=== PATIENT | female | born 1985 | race African-American/Black ===

== ENCOUNTER 2017-01-17 14:33 | Emergency (ER) | payer OTHER ==
[~2017-01-17] VITALS: Ht 162.6 cm; Wt 40.0 kg
[~2017-01-17 14:33] MED LIST: BUTA1CAP PO; LORA-361 PO; PROC10TA PO
[2017-01-17 14:37] VITALS: BP 122/81; PULSE 92; RESP 17; TEMP 98.4; O2SAT 98
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
== END 2017-01-17 16:22 | disposition home or self-care (01) ==
LOC: NEPD 14:33
DX: M54.5 Low back pain (principal); M62.830 Muscle spasm of back; V49.9XXA Car occupant (driver) (passenger) injured in unspecified traffic accident, initial encounter
CPT/HCPCS: 72110; 99283

== ENCOUNTER 2017-06-15 10:08 | Emergency (ER) | payer SELFPAY ==
[~2017-06-15] VITALS: Ht 154.9 cm; Wt 50.0 kg
[2017-06-15] MEDS ORDERED: ADVICAP (10:35)
[2017-06-15 10:39] VITALS: BP 112/65; PULSE 85; RESP 20; TEMP 99; O2SAT 99
--- NOTE | 2017-06-15 11:08 | PD ---
HPI Chief Complaint: Cold / Flu Symptoms Time Seen by Provider: 10:47 Travel History International Travel<30 days: No Contact w/Intl Traveler<30days: No Traveled to known affect area: No History of Present Illness HPI 32 year-old woman, presents to the emergency department complaining of being sick for the past 3 days, cough headaches nausea feeling poorly. Fevers at home. One episode of diarrhea couple days ago. No definite sick contacts. Feeling otherwise well and healthy. History Past Medical History Medical History: Denies Significant Hx LMP: 04/2017 Social History Alcohol Use: Yes (social) Tobacco Use: No Allergies-Medications (Allergen,Severity, Reaction): Coded Allergies: No Known Allergies (Unverified Adverse Reaction, Unknown, 06/15/17) Reported Meds & Prescriptions Reported Meds & Active Scripts Active Reported Advil Cold & Sinus (Pseudoephedrine-Ibuprofen) 30-200 Mg Cap 200 Review of Systems Except as stated in HPI: all other systems reviewed are Neg Physical Exam Narrative GENERAL: Well-appearing 30-year-old, no acute distress. SKIN: Focused skin assessment warm/dry. HEAD: Atraumatic. Normocephalic. EYES: Pupils equal and round. No scleral icterus. No injection or drainage. ENT: No nasal bleeding or discharge. Mucous membranes pink and moist. NECK: Trachea midline. No JVD. No anterior cervical adenopathy. No meningismus. CARDIOVASCULAR: Regular rate and rhythm. No murmur appreciated. RESPIRATORY: No accessory muscle use. Clear to auscultation. Breath sounds equal bilaterally. GASTROINTESTINAL: Abdomen soft, non-tender, nondistended. Hepatic and splenic margins not palpable. MUSCULOSKELETAL: No obvious deformities. No edema. NEUROLOGICAL: Awake and alert. No obvious cranial nerve deficits. Motor grossly within normal limits. Normal speech. Data Data Last Documented VS Vital Signs Date Time Temp Pulse Resp B/P (MAP) Pulse Ox O2 Delivery O2 Flow Rate FiO2 06/15/17 10:39 99.0 85 20 112/65 (81) 99 Room Air Orders Orders Acetaminophen (Tylenol) (06/15/17 11:15) Ondansetron Odt (Zofran Odt) (06/15/17 11:15) Ed Urine Pregnancytest Poc (06/15/17 11:02) MDM Medical Decision Making Medical Screen Exam Complete: Yes Emergency Medical Condition: Yes Differential Diagnosis URI, cough cold, influenza, other Narrative Course Medical decision-making new 32 year-old woman, flulike symptoms, some headache, little bit of cough cold, looks overall well, little bit of abdominal cramping as well. Benign exam. Looks well. Recommend supportive treatment. Diagnosis Primary Impression: Influenza-like illness Additional Instructions: Take acetaminophen or ibuprofen as a for fever or body aches. You can return to work after you have had no fever for 24 hours. Drink plenty of fluids to stay well-hydrated. Follow-up with your primary doctor if you are not completely well in 7-10 days. Return to the emergency department for any worsening chest pain, trouble breathing, or any other new or worsening symptoms. Med/Other Pt SpecificInfo: No Change to Meds Disposition: 01 DISCHARGE HOME Condition: Stable Abdelrahman Coley MD Jun 15, 2017 11:08
[2017-06-15] MEDS ORDERED: ACETAMINOPHEN 500 MG CPLT PO ONE (11:15)
[2017-06-15] MEDS ORDERED: ONDANSETRON ODT 4 MG TAB PO ONE (11:15)
== END 2017-06-15 11:17 | disposition home or self-care (01) ==
LOC: NEPD 10:08
DX: J11.1 Influenza due to unidentified influenza virus with other respiratory manifestations (principal)
CPT/HCPCS: 84703; 99283

== ENCOUNTER 2017-08-15 22:12 | Emergency (ER) | payer SELFPAY ==
[~2017-08-15 22:12] MED LIST changes: +ADVICAP; -BUTA1CAP PO; -LORA-361 PO; -PROC10TA PO
[2017-08-15 22:24] VITALS: BP 147/94; PULSE 97; RESP 16; O2SAT 100
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
[2017-08-15] MEDS ORDERED: SODIUM CHLOR 0.9% 1000 ML INJ 1,000 ML IV SCH (22:42)
[2017-08-15] MEDS ORDERED: SODIUM CHLORIDE 0.9% FLUSH 10 ML FLUSH IV FLUSH PRN (22:45)
[2017-08-15 23:15] LABS: AUTOMATED NEUTROPHIL # 3.4 TH/MM3 (1.8-7.7); BASOPHIL # 0.1 TH/MM3 (0-0.2); BASOPHIL % 0.8 % (0.0-2.0); EOSINOPHIL % 0.6 % (0.0-4.0); HEMATOCRIT 37.5 % (35.0-46.0); HEMOGLOBIN 12.3 GM/DL (11.6-15.3); MEAN CELL VOLUME 81.7 FL (80.0-100.0); MEAN CORPUSCULAR HEMOGLOBIN 26.8 PG (27.0-34.0); MEAN CORPUSCULAR HGB CONC 32.8 % (32.0-36.0); MEAN PLATELET VOLUME 9.2 FL (7.0-11.0); MONO % 6.3 % (0.0-8.0); MONOCYTE # 0.5 TH/MM3 (0-0.9); NEUT % 42.3 % (16.0-70.0); PLATELET COUNT 250 TH/MM3 (150-450); RED BLOOD COUNT 4.59 MIL/MM3 (4.00-5.30); RED CELL DISTRIBUTION WIDTH 16.9 % (11.6-17.2); WHITE BLOOD COUNT 8.1 TH/MM3 (4.0-11.0)
[2017-08-15 23:25] LABS: BILIRUBIN, URINE NEG (NEG); BLOOD, URINE MOD (NEG); GLUCOSE,URINE NEG (NEG); KETONE, URINE NEG (NEG); MUCUS URINE FEW /lpf (OCC); NITRITE,URINE NEG (NEG); SQUAMOUS EPITHELIAL CELL URINE 2 /hpf (0-5); URINE COLOR LIGHT-YELLOW (YELLW/STRAW); URINE LEUKOCYTE ESTERASE TRACE (NEG)
[2017-08-15 23:31] LABS: ALBUMIN 4.5 GM/DL (3.4-5.0); AST (GOT) 29 U/L (15-37); BICARBONATE 27.2 MEQ/L (21.0-32.0); BLOOD UREA NITROGEN 10 MG/DL (7-18); CALCIUM 9.7 MG/DL (8.5-10.1); CHLORIDE 105 MEQ/L (98-107); CREATININE 0.89 MG/DL (0.50-1.00); GLOMERULAR FILTRATION RATE 89 ML/MIN (>89); GLUCOSE,RANDOM 103 MG/DL (74-106); SODIUM (NA) 142 MEQ/L (136-145)
[2017-08-15 23:32] LABS: ALT (GPT) 35 U/L (10-53)
[2017-08-15 23:42] LABS: ALKALINE PHOSPHATASE 93 U/L (45-117); TOTAL BILIRUBIN ADULT 0.3 MG/DL (0.2-1.0); TOTAL PROTEIN 8.4 GM/DL (6.4-8.2)
[2017-08-16] MEDS ORDERED: POTASSIUM CHLORIDE 20 MEQ CONTROLLED RELEASE TAB PO ONE
[2017-08-16] MEDS ORDERED: ACETAMINOPHEN 325 MG TAB PO ONE (00:15)
--- NOTE | 2017-08-16 02:12 | RADRPT ---
EXAM DATE/TIME: 08/16/2017 01:22 [facility] COMPARISON: CT BRAIN W/O CONTRAST, April 28, 2016, 14:43. INDICATIONS : Altered mental status RADIATION DOSE: 56.35 CTDIvol (mGy) MEDICAL HISTORY : None SURGICAL HISTORY : None. ENCOUNTER: Initial ACUITY: 1 day PAIN SCALE: 0/10 LOCATION: cranial TECHNIQUE: Multiple contiguous axial images were obtained of the head. Using automated exposure control and adj ustment of the mA and/or kV according to patient size, radiation dose was kept as low as reasonably a chievable to obtain optimal diagnostic quality images. DICOM format image data is available electro nically for review and comparison. FINDINGS: CEREBRUM: The ventricles are normal for age. No evidence of midline shift, mass lesion, hemorrhage or acute in farction. No extra-axial fluid collections are seen. POSTERIOR FOSSA: The cerebellum and brainstem are intact. The 4th ventricle is midline. The cerebellopontine angle i s unremarkable. EXTRACRANIAL: The visualized portion of the orbits is intact. SKULL: The calvaria is intact. No evidence of skull fracture. CONCLUSION: 1. Negative noncontrast CT brain. Sher Aguilar MD on August 16, 2017 at 2:10 Board Certified Radiologist. This report was verified electronically.
== END 2017-08-16 03:27 | disposition home or self-care (01) ==
LOC: NEPC 22:12
DX: F12.959 Cannabis use, unspecified with psychotic disorder, unspecified (principal)
CPT/HCPCS: 70450; 80053; 80307; 81001; 84443; 84703; 85025; 96360; 99284; J7030

== ENCOUNTER 2017-10-25 17:54 | Emergency (ER) | payer SELFPAY ==
[~2017-10-25] VITALS: Ht 162.6 cm; Wt 40.0 kg
[2017-10-25 17:59] VITALS: BP 132/71; PULSE 93; RESP 16; TEMP 98.9; O2SAT 99
--- NOTE | 2017-10-25 18:29 | PD ---
HPI Chief Complaint: GI Complaint Time Seen by Provider: 18:09 Travel History International Travel<30 days: No Contact w/Intl Traveler<30days: No Traveled to known affect area: No History of Present Illness HPI Patient is a 32-year-old female presents emergency department with abdominal pain headache sinus pressure and vaginal discharge. Patient states symptoms started today, states the pain is severe, states she has never had pain like this before. Mild nausea no vomiting no diarrhea no constipation. States she has not tried anything to relieve her pain. She cannot well localize the abdominal pain. Also endorses dysuria. [facility] Past Medical History Medical History: Denies Significant Hx Diminished Hearing: No Tetanus Vaccination: Unknown ?: Not LMP: 09/12/17 : 3 Para: 3 Past Surgical History Surgical History: No Previous Surgery Social History Alcohol Use: Yes ([facility]) Tobacco Use: No Substance Use: No Allergies-Medications (Allergen,Severity, Reaction): Coded Allergies: perfume (Verified Allergy, Unknown, 10/25/17) No Known Allergies (Unverified Adverse Reaction, Unknown, 08/15/17) Reported Meds & Prescriptions Reported Meds & Active Scripts Active No Active Prescriptions or Reported Medications Review of Systems Except as stated in HPI: all other systems reviewed are Neg Physical Exam Narrative GENERAL: Well-developed very thin female in no obvious distress. SKIN: Focused skin assessment warm/dry. HEAD: Atraumatic. Normocephalic. EYES: Pupils equal and round. No scleral icterus. No injection or drainage. ENT: No nasal bleeding or discharge. Mucous membranes pink and moist. NECK: Trachea midline. No JVD. CARDIOVASCULAR: Regular rate and rhythm. No murmur appreciated. RESPIRATORY: No accessory muscle use. Clear to auscultation. Breath sounds equal bilaterally. GASTROINTESTINAL: Abdomen soft, non-tender, nondistended. Hepatic and splenic margins not palpable. Patient has no rebound no percussive tenderness, her abdomen is fairly soft, with palpation to the right lower quadrant she does push my hand away. Normal active bowel sounds GENITOURINARY: Exam performed with female nurse passenger attendant present all times, lumpy bumpy cervix, no friability, no erythema, no discharge observed. No bleeding. There is some uterine fullness on palpation but no bimanual tenderness no cervical motion tenderness. MUSCULOSKELETAL: No obvious deformities. No clubbing. No cyanosis. No edema. NEUROLOGICAL: Awake and alert. No obvious cranial nerve deficits. Motor grossly within normal limits. Normal speech. PSYCHIATRIC: Appropriate mood and affect; insight and judgment normal. Data Data Last Documented VS Vital Signs Date Time Temp Pulse Resp B/P (MAP) Pulse Ox O2 Delivery O2 Flow Rate FiO2 10/25/17 18:47 20 98 Room Air 10/25/17 17:59 98.9 93 132/71 (91) Orders Orders Complete Blood Count With Diff (10/25/17 18:23) Comprehensive Metabolic Panel (10/25/17 18:23) Lactic Acid (10/25/17 18:23) Urinalysis - C+S If Indicated (10/25/17 18:23) Iv Access Insert/Monitor (10/25/17 18:23) Ecg Monitoring (10/25/17 18:23) Oximetry (10/25/17 18:23) Sodium Chloride 0.9% Flush (Ns Flush) (10/25/17 18:30) Ed Urine Pregnancytest Poc (10/25/17 18:23) Ct Abd/Pel W Iv Contrast(Rout) (10/25/17 ) Wet Prep Profile (10/25/17 18:28) Gc And Chlamydia Pcr (10/25/17 18:28) Morphine Inj (Morphine Inj) (10/25/17 18:30) Ondansetron Odt (Zofran Odt) (10/25/17 19:00) Diatrizoate Liq ( Gastroluis Liq) (10/25/17 19:21) Diatrizoate Liq ( Gastroluis Liq) (10/25/17 19:30) Labs Laboratory Tests Test 10/25/17 18:40 10/25/17 18:55 10/25/17 19:10 White Blood Count 6.1 TH/MM3 Red Blood Count 4.88 MIL/MM3 Hemoglobin 13.2 GM/DL Hematocrit 39.4 % Mean Corpuscular Volume 80.9 FL Mean Corpuscular Hemoglobin 27.1 PG Mean Corpuscular Hemoglobin Concent 33.5 % Red Cell Distribution Width 17.6 % Platelet Count 219 TH/MM3 Mean Platelet Volume 9.4 FL Neutrophils (%) (Auto) 70.9 % Lymphocytes (%) (Auto) 21.3 % Monocytes (%) (Auto) 7.1 % Eosinophils (%) (Auto) 0.4 % Basophils (%) (Auto) 0.3 % Neutrophils # (Auto) 4.3 TH/MM3 Lymphocytes # (Auto) 1.3 TH/MM3 Monocytes # (Auto) 0.4 TH/MM3 Eosinophils # (Auto) 0.0 TH/MM3 Basophils # (Auto) 0.0 TH/MM3 CBC Comment DIFF FINAL Differential Comment Blood Urea Nitrogen 15 MG/DL Creatinine 0.80 MG/DL Random Glucose 83 MG/DL Total Protein 7.8 GM/DL Albumin 4.1 GM/DL Calcium Level 8.9 MG/DL Alkaline Phosphatase 82 U/L Aspartate Amino Transf (AST/SGOT) 27 U/L Alanine Aminotransferase (ALT/SGPT) 32 U/L Total Bilirubin 0.5 MG/DL Sodium Level 141 MEQ/L Potassium Level 3.7 MEQ/L Chloride Level 104 MEQ/L Carbon Dioxide Level 28.9 MEQ/L Anion Gap 8 MEQ/L Estimat Glomerular Filtration Rate 101 ML/MIN Lactic Acid Level 0.7 mmol/L Urine Color LIGHT-YELLOW Urine Turbidity CLEAR Urine pH 7.0 Urine Specific [place] 1.013 Urine Protein NEG mg/dL Urine Glucose (UA) NEG mg/dL Urine Ketones NEG mg/dL Urine Occult Blood NEG Urine Nitrite NEG Urine Bilirubin NEG Urine Urobilinogen LESS THAN 2.0 MG/DL Urine Leukocyte Esterase NEG Urine WBC LESS THAN 1 /hpf Urine Squamous Epithelial Cells 2 /hpf Urine Bacteria RARE /hpf Urine Mucus FEW /lpf Microscopic Urinalysis Comment CULT NOT INDICATED Clue Cells (Wet Prep) NS Vaginal Trichomonas (Wet Prep) NS Vaginal Yeast (Wet Prep) NS MDM Medical Decision Making Medical Screen Exam Complete: Yes Emergency Medical Condition: Yes Differential Diagnosis Appendicitis, STD, PID unlikely, uterine fibroids, ovarian torsion seems unlikely. Narrative Course Patient room to the emergency department, morphine 4 mg IV was given, patient consuming p.o. contrast for CT of the abdomen pelvis rule out appendicitis or other acute abdominal pathology, patient was discussed with Dr. Patrick Fenton at 1900 shift change, follow-up CT and labs and disposition the patient appropriately. Scripts No Active Prescriptions or Reported Meds Condition: Stable Andrade Rubin MD October 25, 2017 18:29
[2017-10-25] MEDS ORDERED: MORPHINE SULFATE 4 MG/ML INJ IV PUSH ONE (18:30)
[2017-10-25] MEDS ORDERED: SODIUM CHLORIDE 0.9% FLUSH 10 ML FLUSH IV FLUSH PRN (18:30)
[2017-10-25 18:47] VITALS: RESP 20; O2SAT 98
[2017-10-25] MEDS ORDERED: ONDANSETRON ODT 4 MG TAB PO ONE (19:00)
[2017-10-25 19:18] LABS: AUTOMATED NEUTROPHIL # 4.3 TH/MM3 (1.8-7.7); BASOPHIL % 0.3 % (0.0-2.0); EOSINOPHIL % 0.4 % (0.0-4.0); HEMATOCRIT 39.4 % (35.0-46.0); HEMOGLOBIN 13.2 GM/DL (11.6-15.3); LYMPH % 21.3 % (9.0-44.0); LYMPHOCYTE # 1.3 TH/MM3 (1.0-4.8); MEAN CELL VOLUME 80.9 FL (80.0-100.0); MEAN CORPUSCULAR HEMOGLOBIN 27.1 PG (27.0-34.0); MEAN CORPUSCULAR HGB CONC 33.5 % (32.0-36.0); MEAN PLATELET VOLUME 9.4 FL (7.0-11.0); MONO % 7.1 % (0.0-8.0); MONOCYTE # 0.4 TH/MM3 (0-0.9); NEUT % 70.9 % (16.0-70.0); PLATELET COUNT 219 TH/MM3 (150-450); RED BLOOD COUNT 4.88 MIL/MM3 (4.00-5.30); RED CELL DISTRIBUTION WIDTH 17.6 % (11.6-17.2); WHITE BLOOD COUNT 6.1 TH/MM3 (4.0-11.0)
[2017-10-25] MEDS ORDERED: DIATRIZOATE MEGLUM/DIATRIZOATE SOD 9 ML CUP ONE (19:21)
[2017-10-25 19:27] LABS: BACTERIA, URINE RARE /hpf; BILIRUBIN, URINE NEG (NEG); BLOOD, URINE NEG (NEG); GLUCOSE,URINE NEG (NEG); KETONE, URINE NEG (NEG); MUCUS URINE FEW /lpf (OCC); NITRITE,URINE NEG (NEG); SQUAMOUS EPITHELIAL CELL URINE 2 /hpf (0-5); URINE COLOR LIGHT-YELLOW (YELLW/STRAW); URINE LEUKOCYTE ESTERASE NEG (NEG)
[2017-10-25] MEDS ORDERED: DIATRIZOATE MEGLUM/DIATRIZOATE SOD 9 ML CUP PO ONE (19:30)
[2017-10-25 19:37] LABS: ALBUMIN 4.1 GM/DL (3.4-5.0); AST (GOT) 27 U/L (15-37); BICARBONATE 28.9 MEQ/L (21.0-32.0); BLOOD UREA NITROGEN 15 MG/DL (7-18); CALCIUM 8.9 MG/DL (8.5-10.1); CHLORIDE 104 MEQ/L (98-107); GLOMERULAR FILTRATION RATE 101 ML/MIN (>89); GLUCOSE,RANDOM 83 MG/DL (74-106); SODIUM (NA) 141 MEQ/L (136-145)
[2017-10-25 19:39] LABS: ALT (GPT) 32 U/L (10-53)
[2017-10-25 19:40] LABS: ALKALINE PHOSPHATASE 82 U/L (45-117); TOTAL BILIRUBIN ADULT 0.5 MG/DL (0.2-1.0); TOTAL PROTEIN 7.8 GM/DL (6.4-8.2)
[2017-10-25] MEDS ORDERED: IOHEXOL 350 MG/ML 10 ML VIAL (for RAD DIAG) IVCONTRAST ONE (20:44)
--- NOTE | 2017-10-25 20:56 | RADRPT ---
EXAM DATE: 10/25/2017 8:48 PM EDT AGE/SEX: 32 years / Female INDICATIONS: Abdominal pain, nausea, vomiting CLINICAL DATA: This is the patient's initial encounter. Patient reports that signs and symptoms have been present for 1 day and indicates a pain score of 10/10. MEDICAL/SURGICAL HISTORY: None. None. ORAL CONTRAST: Prescribed oral contrast ingested. RADIATION DOSE: 4.51 CTDI (mGy) COMPARISON: No prior [place] exams available for comparison. TECHNIQUE: Multiple contiguous axial images were obtained through the abdomen and pelvis following b olus infusion of 70 ml Omnipaque 350 (iohexol) nonionic water-soluble contrast as a single exam dos e. Prescribed oral contrast ingested. Using automated exposure control and adjustment of the mA and/ or kV according to patient size, the radiation dose was kept as low as reasonably achievable to obtai n optimal diagnostic quality images. FINDINGS: Lung bases are clear. No pleural or pericardial effusion. No acute findings in the liver, spleen, adrenals, kidneys or pancreas. No calcified gallstones or moo iary ductal dilatation. The stomach is markedly distended. Also mild rectal constipation. No acute bony abnormalities. CONCLUSION: 1. Stomach is markedly distended mostly with fluid and some air. Also mild rectal constipation. 2. Mild fatty liver. Otherwise no acute findings within the abdomen and pelvis. Electronically signed by: Gumaro Phan MD 10/25/2017 8:55 PM EDT
[2017-10-25] MEDS ORDERED: LACT10SO PO (21:05)
--- NOTE | 2017-10-25 21:06 | PD ---
Data Data Last Documented VS Vital Signs Date Time Temp Pulse Resp B/P (MAP) Pulse Ox O2 Delivery O2 Flow Rate FiO2 10/25/17 18:47 20 98 Room Air 10/25/17 17:59 98.9 93 132/71 (91) Orders Orders Complete Blood Count With Diff (10/25/17 18:23) Comprehensive Metabolic Panel (10/25/17 18:23) Lactic Acid (10/25/17 18:23) Urinalysis - C+S If Indicated (10/25/17 18:23) Iv Access Insert/Monitor (10/25/17 18:23) Ecg Monitoring (10/25/17 18:23) Oximetry (10/25/17 18:23) Sodium Chloride 0.9% Flush (Ns Flush) (10/25/17 18:30) Ed Urine Pregnancytest Poc (10/25/17 18:23) Ct Abd/Pel W Iv Contrast(Rout) (10/25/17 ) Wet Prep Profile (10/25/17 18:28) Gc And Chlamydia Pcr (10/25/17 18:28) Morphine Inj (Morphine Inj) (10/25/17 18:30) Ondansetron Odt (Zofran Odt) (10/25/17 19:00) Diatrizoate Liq ( Gastroluis Liq) (10/25/17 19:21) Diatrizoate Liq (Md Ayala Liq) (10/25/17 19:30) Iohexol 350 Inj (Omnipaque 350 Inj) (10/25/17 20:44) Labs Laboratory Tests Test 10/25/17 18:40 10/25/17 18:55 10/25/17 19:10 White Blood Count 6.1 TH/MM3 Red Blood Count 4.88 MIL/MM3 Hemoglobin 13.2 GM/DL Hematocrit 39.4 % Mean Corpuscular Volume 80.9 FL Mean Corpuscular Hemoglobin 27.1 PG Mean Corpuscular Hemoglobin Concent 33.5 % Red Cell Distribution Width 17.6 % Platelet Count 219 TH/MM3 Mean Platelet Volume 9.4 FL Neutrophils (%) (Auto) 70.9 % Lymphocytes (%) (Auto) 21.3 % Monocytes (%) (Auto) 7.1 % Eosinophils (%) (Auto) 0.4 % Basophils (%) (Auto) 0.3 % Neutrophils # (Auto) 4.3 TH/MM3 Lymphocytes # (Auto) 1.3 TH/MM3 Monocytes # (Auto) 0.4 TH/MM3 Eosinophils # (Auto) 0.0 TH/MM3 Basophils # (Auto) 0.0 TH/MM3 CBC Comment DIFF FINAL Differential Comment Blood Urea Nitrogen 15 MG/DL Creatinine 0.80 MG/DL Random Glucose 83 MG/DL Total Protein 7.8 GM/DL Albumin 4.1 GM/DL Calcium Level 8.9 MG/DL Alkaline Phosphatase 82 U/L Aspartate Amino Transf (AST/SGOT) 27 U/L Alanine Aminotransferase (ALT/SGPT) 32 U/L Total Bilirubin 0.5 MG/DL Sodium Level 141 MEQ/L Potassium Level 3.7 MEQ/L Chloride Level 104 MEQ/L Carbon Dioxide Level 28.9 MEQ/L Anion Gap 8 MEQ/L Estimat Glomerular Filtration Rate 101 ML/MIN Lactic Acid Level 0.7 mmol/L Urine Color LIGHT-YELLOW Urine Turbidity CLEAR Urine pH 7.0 Urine Specific [place] 1.013 Urine Protein NEG mg/dL Urine Glucose (UA) NEG mg/dL Urine Ketones NEG mg/dL Urine Occult Blood NEG Urine Nitrite NEG Urine Bilirubin NEG Urine Urobilinogen LESS THAN 2.0 MG/DL Urine Leukocyte Esterase NEG Urine WBC LESS THAN 1 /hpf Urine Squamous Epithelial Cells 2 /hpf Urine Bacteria RARE /hpf Urine Mucus FEW /lpf Microscopic Urinalysis Comment CULT NOT INDICATED Clue Cells (Wet Prep) NS Vaginal Trichomonas (Wet Prep) NS Vaginal Yeast (Wet Prep) NS MDM Supervised Visit with IVELISSE: No Narrative Course The patient was initially evaluated by the previous provider and signed out to me the beginning of my shift pending labs, CT abdomen pelvis, and disposition. See his note for further details. Briefly this is a 32-year-old female who presents with abdominal pain. On my assessment the patient reports that her pain is mainly epigastric. Pelvic exam was performed by the previous provider and was unremarkable according to him. There is no purulent drainage or significant tenderness or abnormal masses. Vital signs are within normal limits. CBC is unremarkable. CMP is unremarkable. Lactate is 0.7. UA is not suggestive of UTI. Wet prep is negative. CT abdomen pelvis shows marked distention of the stomach with mild constipation, no acute process. Patient was made aware of all findings. She was provided pain medication by the previous provider. On my assessment she has mild epigastric tenderness. There are no peritoneal signs. She is resting comfortably. She will be given a prescription for lactulose. She is stable for discharge home with outpatient follow-up with her primary care physician this week. She was advised on when to return to the emergency department. She verbalizes understanding and agreement with plan. Diagnosis Primary Impression: Abdominal pain Qualified Codes: R10.13 - Epigastric pain Additional Impression: Constipation Qualified Codes: K59.00 - Constipation, unspecified Referrals: [facility] 3 days Primary Care Physician 3 days Additional Instruction: Follow-up with your primary care physician this week. Return to the emergency department for worsening symptoms or any other concerns. Scripts Lactulose Liq (Lactulose Liq) 10 Gm/15 Ml Soln 30 ML PO Q6H Y for CONSTIPATION for 5 Days, #600 ML 0 Refills Prov: Patrick Fenton MD 10/25/17 Disposition: 01 DISCHARGE HOME Condition: Stable Patrick Fenton MD October 25, 2017 21:06
== END 2017-10-25 21:22 | disposition home or self-care (01) ==
LOC: NEPC 17:54
DX: R10.13 Epigastric pain (principal); K59.00 Constipation, unspecified; N89.8 Other specified noninflammatory disorders of vagina; R30.0 Dysuria; R51 Headache
CPT/HCPCS: 74177; 80053; 81001; 83605; 84703; 85025; 87210; 87491; 87591; 96374; 99284; J2270; Q9963; Q9967